=== PATIENT | female | born 2000 | race African-American/Black ===

== ENCOUNTER 2018-05-29 13:07 | Inpatient (IN) | payer MEDICAID ==
[2018-06-02 17:53] LABS: APPEARANCE,URINE CLOUDY; BILIRUBIN,URINE NEGATIVE (NEGATIVE); COLOR,URINE YELLOW; GLUCOSE, URINE NEGATIVE (NEGATIVE); KETONES,URINE NEGATIVE (NEGATIVE); LEUKOCYTE ESTERASE,URINE LARGE (NEGATIVE); NITRITE,URINE NEGATIVE (NEGATIVE); PROTEIN,URINE NEGATIVE (NEGATIVE); URINE SPECIFIC GRAVITY 1.014
[2018-06-02 17:56] LABS: ABSOLUTE BASOPHILS # (AUTO) 0.1 10^3/uL (0.0-0.2); ABSOLUTE EOSINOPHILS # (AUTO) 0.1 10^3/uL (0.0-0.6); ABSOLUTE LYMPHOCYTES (AUTO) 2.1 10^3/uL (0.5-4.7); ABSOLUTE MONOCYTES (AUTO) 0.8 10^3/uL (0.1-1.4); ABSOLUTE NEUT (AUTO) 6.5 10^3/uL (1.7-8.2); BASOPHILS % (AUTO) 0.5 % (0-2); EOSINOPHILS % (AUTO) 1.4 % (0-6); HEMATOCRIT 35.5 % (36.0-47.0); HEMOGLOBIN 11.5 g/dL (12.0-15.5); LYMPHOCYTES % (AUTO) 22.1 % (13-45); MEAN CORPUSCULAR HEMOGLOBIN 25.9 pg (27.0-33.4); MEAN CORPUSCULAR HGB CONC 32.4 g/dL (32.0-36.0); MEAN CORPUSCULAR VOLUME 80 fl (80-97); MONOCYTES % (AUTO) 8.2 % (3-13); PLATELET COUNT 294 10^3/uL (150-450); RED BLOOD COUNT 4.44 10^6/uL (3.72-5.28); RED CELL DISTRIBUTION WIDTH 13.6 % (11.5-14.0); SEGMENTED NEUTROPHILS % (AUTO) 67.8 % (42-78); TOTAL CELLS COUNTED % (AUTO) 100 %; WHITE BLOOD COUNT 9.6 10^3/uL (4.0-10.5)
[2018-06-02 18:11] LABS: URINE AMPHETAMINES SCREEN NEGATIVE; URINE BARBITURATES SCREEN NEGATIVE; URINE BENZODIAZEPINES SCREEN NEGATIVE; URINE COCAINE SCREEN NEGATIVE; URINE MARIJUANA (THC) SCREEN NEGATIVE; URINE METHADONE SCREEN NEGATIVE; URINE PHENCYCLIDINE SCREEN NEGATIVE
[2018-06-02] MEDS ORDERED: DINOPROSTONE 10 MG VAGINAL INSERT.SR ONE (18:31)
[2018-06-02] MEDS ORDERED: DINOPROSTONE 10 MG VAGINAL INSERT.SR PV ONE (18:55)
[2018-06-02] MEDS ORDERED: MAG HYDROX/AL HYDROX/SIMETH SUSP 30 ML UDCUP PO PRN (18:55)
[2018-06-02] MEDS ORDERED: ACETAMINOPHEN 325 MG TABLET PO PRN (18:55)
[2018-06-02] MEDS ORDERED: ZOLPIDEM TARTRATE 5 MG TABLET PO PRN (18:55)
[2018-06-02] MEDS ORDERED: SODIUM CHLORIDE IRRIG SOLUTION 1,000 ML IR PRN ×2 (19:01→19:04)
--- NOTE | 2018-06-02 19:01 | Admission Physical ---
Datetime Report Generated by CPN: 06/02/2018 19:00 CURRENT ADMISSION Chief Complaint: Scheduled Induction of Labor Indication for Induction: Post Dates; Maternal Diabetes Admit Impression : Term, Intrauterine ; No Active Labor; Intact Membranes Admit Plan: Admit to Unit; Initiate Labor Induction Protocol ALLERGIES Medication Allergies: No Medication Allergies: No Known Allergies (06/02/2018) Latex: No Latex Allergies Food Allergies: NA Environmental Allergies: NA OBSTETRICAL HISTORY EDC: 05/27/2018 00:00 : 1 Para: 0 Term: 0 : 0 SAB: 0 IAB: 0 Ectopic: 0 Livin Cesareans: 0 VBACs: 0 Multiple Births: 0 Gestational Diabetes: Yes Rh Sensitization: No Incompetent Cervix: No TORRIE: No Infertility: No ART Treatment: No Uterine Anomaly: No IUGR: No Hx Previous C/S: No Macrosomia: No Hx Loss/Stillborn: No PIH: No Hx : No Placenta Previa/Abruption: No Depression/PP Depression: No PTL/PROM: No Post Hemorrhage: No Current Procedures: Ultrasound; NST Obstetrical History Comments: G1-current preg SEE RECORDS Alcohol: No Marijuana : No Cocaine: No Other Illicit Drugs: No Cigarettes: Never Smoker. [id number] MEDICAL HISTORY Diabetes: Yes Diabetes Type: Gestational Diabetes Blood Transfusion: No Pulmonary Disease (Asthma, TB): No Breast Disease: No Hypertension: No Paper Products Supervisor Surgery: No Heart Disease: No Hosp/Surgery: No Autoimmune Disorder: No Anesthetic Complications: No Kidney Disease: No Abnormal Pap Smear: No Neuro/Epilepsy: No Psychiatric Disorders: No Other Medical Diseases: No Hepatitis/Liver Disease: No Significant Family History: No Varicosities/Phlebitis: No Trauma/Violence : No Thyroid Dysfunction: No INFECTIOUS HISTORY Gonorrhea: No Genital Herpes: No Chlamydia: No Tuberculosis: No Syphilis: No Hepatitis: No HIV/AIDS Exposure: No Rash or Viral Illness: No HPV: No PHYSICAL EXAM General: Normal HEENT: Normal Neurologic: Normal Thyroid: Normal Heart: Normal Lungs: Normal Breast: Normal Back: Normal Abdomen: Normal Genitourinary Exam: Normal Extremities: Normal DTRs: Normal Pelvic Type: Adequate Vital Signs: Reviewed; Within Normal Limits VAGINAL EXAM Dilatation: 1 Effacement: 75 Station: -3 Contraction Comments: irregular MEMBRANES Membranes: Intact FETUS A EGA: 40.6 Monitoring: External US FHR- Baseline: 140s Accelerations: 15X15 Decelerations: None FHR Category: Category I Admit Comment: Cervidil placed at 1844 PLANS FOR LABOR AND DELIVERY Labor and Delivery: None Pain Management: None Feeding Preference: Breast Benefit of Breast Feed Discussed: Yes Circumcision: Yes INFORMED CONSENT Signature: with User ID: [email or web address]
--- NOTE | 2018-06-03 06:56 | L&D Progress Notes ---
PROGRESS NOTES Datetime Report Generated by CPN: 06/03/2018 06:55 PROGRESS NOTE Impression: Normal Progression of Labor Plan: Continue Present Management Informed Consent Obtained: Vaginal Delivery Vital Signs : Reviewed; Within Normal Limits Comment: Pt rested overnight. Cervidil removed at 0644. Good cervical change. VAGINAL EXAM Dilatation: 1 Effacement: 75 Station: -3 Contractions: irregular LAST VAGINAL EXAM-NURSING Dilitation: 3.0 Dilitation: 3.0 Dilitation: 1.0 Effacement: 75 Effacement: 75 Effacement: 70 Station: -3 Station: -1 Station: -2 MEMBRANES Membranes: Intact FETUS A FHR - Baseline: 140s Monitoring: External US Variability: Moderate 6-25bpm Accelerations: 15X15 Decelerations: None FHR Category: Category I : 41.0 : 40.6 SIGNATURE SIGNATURE: [id number];[id number] SIGNATURE: [id number] Signature: with User ID: [email or web address]
[2018-06-03] MEDS ORDERED: RINGERS SOLUTION,LACTATED 1,000 ML IV PRN (08:02)
[2018-06-03] MEDS ORDERED: RINGERS SOLUTION,LACTATED 300 ML IV ONE (08:02)
[2018-06-03] MEDS ORDERED: DINOPROSTONE 10 MG VAGINAL INSERT.SR PV PRN (08:02)
[2018-06-03] MEDS ORDERED: OXYTOCIN/NORMAL SALINE 20 UNIT/1,000 ML RTUINJ IV PRN ×3 (08:02→15:18)
[2018-06-03] MEDS ORDERED: OXYTOCIN/NORMAL SALINE 20 UNIT/1,000 ML RTUINJ ONE (08:09)
[2018-06-03] MEDS ORDERED: ONDANSETRON HCL INJ/PF 4 MG/2 ML SDV IV PRN (08:22)
[2018-06-03] MEDS ORDERED: ONDANSETRON HCL INJ/PF 4 MG/2 ML SDV ONE (08:23)
[2018-06-03] MEDS ORDERED: LIDOCAINE 1% INJ-PF (10 MG/ML) 30 ML SDV ONE (08:31)
[2018-06-03] MEDS ORDERED: NALBUPHINE HCL INJ 10 MG/1 ML AMPULE ONE (08:31)
[2018-06-03] MEDS ORDERED: MISOPROSTOL 0.2 MG TABLET ONE (08:31)
[2018-06-03] MEDS ORDERED: NALBUPHINE HCL INJ 10 MG/1 ML AMPULE INJ ONE (08:35)
--- NOTE | 2018-06-03 08:40 | L&D Progress Notes ---
PROGRESS NOTES Datetime Report Generated by CPN: 06/03/2018 08:39 PROGRESS NOTE Impression: Normal Progression of Labor; Reassuring Heart Rate Procedures: Sterile Vag Exam Plan: Continue Present Management; Anticipate Vaginal Delivery Plan Other: Pt may have IV pain medicatin. Will d/c Pitocin Augmentation Vital Signs : Reviewed Comment: IOL since last night. S/p Vaginal Cervidil. Pt becoming uncomfortable with the contractions. PLans IV pain medication, does not plan an epiudural. Position changes encouraged. Anticipate VAGINAL EXAM Dilatation: 6 Effacement: 100 Station: 0 Contractions: q 1-2 Dilitation: 6.0 Effacement: 100 Station: 0 MEMBRANES Membranes: Intact FETUS A FHR - Baseline: 140 Monitoring: External US Variability: Moderate 6-25bpm Accelerations: 15X15 Decelerations: None FETUS C SIGNATURE: [id number];[id number] Assignment: Davon Damico MD Signature: with User ID: [email or web address] : with User ID: [email or web address]
[2018-06-03] MEDS ORDERED: BENZOCAINE/MENTHOL AEROSOL SPRAY 56 ML TOP PRN ×2 (12:33→15:18)
[2018-06-03] MEDS ORDERED: MEASLES,MUMPS&RUBELLA VACC/PF 0.5 ML VIAL SUBCUT PRN ×2 (12:33→15:18)
[2018-06-03] MEDS ORDERED: DIPH/PERTUSS(ACELL)/TETANUS VAC/PF 0.5 ML SYR (>=10YO) IM PRN ×2 (12:33→15:18)
[2018-06-03] MEDS ORDERED: ACETAMINOPHEN WITH CODEINE #3 TABLET PO PRN ×2 (12:33)
[2018-06-03] MEDS ORDERED: DIBUCAINE 1% OINTMENT 28 GM TP PRN ×2 (12:33→15:18)
[2018-06-03] MEDS ORDERED: IBUPROFEN 800 MG TABLET PO SCH (14:00)
--- NOTE | 2018-06-03 14:46 | Warning Signs in Babies ---
VOD Warning Signs Datetime Report Generated by [facility]: 06/03/2018 14:45 VOD#608 -Warning Signs in Babies: Viewed with Parent(s)/Family (06/02/2018 15:40:Rayray Lockhart RN)
--- NOTE | 2018-06-03 14:50 | Warning Signs in Babies ---
VOD Warning Signs Datetime Report Generated by [facility]: 06/03/2018 14:50 VOD#608 -Warning Signs in Babies: Viewed with Parent(s)/Family (06/03/2018 14:46:Rayray Lockhart RN)
[2018-06-03] MEDS ORDERED: ZOLPIDEM TARTRATE 5 MG TABLET PO PRN (15:18)
--- NOTE | 2018-06-03 17:04 | Delivery Summary ---
Del Sum A-C Datetime Report Generated by CPN: 06/03/2018 17:04 DELIVERY PERSONNEL DELIVERY PERSONNEL: [id number] Delivery Doctor:: Whit Junior CNM Labor and Delivery Nurse:: Rayray Lockhart RNcoal cutter Nurse:: Devorah Hogue RN Nursery Nurse:: Estela Tucker RN Student Observers:: ALIZA WELCH Tech/SUPERVISOR ELECTRIC: Cecilia Kellogg, EQUAL EMPLOYMENT OPPORTUNITY OFFICER MATERNAL INFORMATION Delivery Anesthesia: None Medications After Delivery: Pitocin Bolus-Please Comment; Pitocin Drip 20 Units/1000ml NSS Maternal Complications: None Provider Comments: Pt pushed x 30 min to achieve of viable male . Delivered RAVINDER, nuchal cord x 1, easily reduced. baby placed on pts abdoman in stable condition. Cord blood obtained. Placenta S/C/I. Iv Pitocin infusing. ff w/ decreased lochia. Repair of 2nd degree laceration repaired w/ 3.0 vicryl. Numbed with 1% lidocaine. Pt tolerated procedure well. Small abrasion on the cervix oozing. Hemostasis achieved by holding pressure on the cervix. Pt and baby are skin to skin, she plans to breastfeed. Attending MD is Dr Damico LABOR SUMMARY EDC: 05/27/2018 00:00 No. Babies in Womb: 1 Attempted: No Labor Anesthesia: None LABOR INFORMATION Reason for Induction: Maternal Diabetes Onset of Labor: 06/03/2018 08:28 Complete Dilatation: 06/03/2018 11:21 Cervical Ripening Agents: Cytotec @ 200mcg SL Oxytocin: N/A Group B Beta Strep: negative Antibiotics # of Doses: 0 Steroids Given: None Reason Steroids Not Administered: Not Applicable MEMBRANES Membranes Rupture Method: Artificial Rupture of Membranes: 06/03/2018 08:28 Length of Rupture (hr): 3.55 Amniotic Fluid Color: Light Meconium Amniotic Fluid Amount: Moderate Amniotic Fluid Odor: Normal STAGES OF LABOR Stage 1 hr: 2 Stage 1 min: 53 Stage 2 hr: 0 Stage 2 min: 40 Stage 3 hr: 0 Stage 3 min: 4 Total Time in Labor hr: 3 Total Time in Labor min: 37 VAGINAL DELIVERY Episiotomy: None Laceration #1: Perineal; Periurethral Laceration Extension #1: Second Degree Laceration Repair: Yes Sponge Count Correct: N/A Sharps Count Correct: N/A BABY A INFORMATION Infant Delivery Date/Time: 06/03/2018 12:01 Method of Delivery: Vaginal Born in Route : No : N/A Forceps: N/A Vacuum Extraction: N/A Shoulder Dystocia : No PRESENTATION/POSITION BABY A Presentation: Cephalic Cephalic Presentation: Vertex Vertex Position: Left Mentum Anterior Breech Presentation: N/A PLACENTA INFORMATION BABY A Placenta Delivery Time : 06/03/2018 12:05 Placenta Method of Delivery: Spontaneous Placenta Status: Delivered SCORES BABY A Heart Rate 1 min: >100 bpm Resp Effort 1 min: Good Cry Reflex Irritability 1 min: Cough or Sneeze or Pulls Away Muscle Tone 1 min: Active Motion Color 1 min: Blue/Pale Resuscitation Effort 1 min: Tactile Stimulation SCORE 1 MIN: 8 Heart Rate 5 min: >100 bpm Resp Effort 5 min: Good Cry Reflex Irritability 5 min: Cough or Sneeze or Pulls Away Muscle Tone 5 min: Active Motion Color 5 min: Blue/Pale Resuscitation Effort 5 min: Tactile Stimulation SCORE 5 MIN: 8 INFORMATION BABY A Gestational Age at Delivery: 41.0 Gestational Status: Late Term- 41- 41.6 Weeks Infant Outcome : Liveborn Condition : Stable Sex: Male IDENTIFICATION BABY A Verification Date/Time: 06/03/2018 13:03 ID Band Number: [id number] Mother's Name Verified: Yes Infant RN Verifying : Ashley Lockhart, RN and CLeland Cannon, RN WEIGHT/LENGTH BABY A Infant Birthweight (gm): 3687 Weight (lb): 8 Weight (oz): 2 Infant Length (in): 21.00 Infant Length (cm): 53.34 CORD INFORMATION BABY A No. Cord Vessels: 3 Nuchal Cord : Around Neck x1, Loose Cord Blood Taken: Yes-For Storage (Mom's Blood type +) Infant Suction: None ASSESSMENT BABY A Skin to Skin: Yes BABY B INFORMATION : N/A SIGNATURES Assignment: Davon Gambleb, MD Signature: with User ID: [email or web address] : with User ID: [email or web address]
[2018-06-03] MEDS: DOCUSATE SODIUM 100 MG CAPSULE PO SCH (17:45)
[2018-06-03] MEDS: FERROUS SULFATE 325 MG TABLET PO SCH (17:45)
[2018-06-03] MEDS ORDERED: FERROUS SULFATE 325 MG TABLET PO SCH (18:00)
[2018-06-03] MEDS ORDERED: DOCUSATE SODIUM 100 MG CAPSULE PO SCH (18:00)
[2018-06-04] MEDS: IBUPROFEN 800 MG TABLET PO SCH ×4 (00:03→21:49)
[2018-06-04 06:29] LABS: HEMATOCRIT 34.1 % (36.0-47.0); HEMOGLOBIN 10.9 g/dL (12.0-15.5); MEAN CORPUSCULAR HEMOGLOBIN 25.6 pg (27.0-33.4); MEAN CORPUSCULAR HGB CONC 31.9 g/dL (32.0-36.0); MEAN CORPUSCULAR VOLUME 80 fl (80-97); PLATELET COUNT 315 10^3/uL (150-450); RED BLOOD COUNT 4.24 10^6/uL (3.72-5.28); RED CELL DISTRIBUTION WIDTH 13.7 % (11.5-14.0); WHITE BLOOD COUNT 17.6 10^3/uL (4.0-10.5)
[2018-06-04] MEDS ORDERED: SENNOSIDES/DOCUSATE 8.6-50 MG 1 EACH TABLET PO SCH (10:00)
[2018-06-04] MEDS ORDERED: PRENATAL VITAMIN W DHA CAPSULE PO SCH (10:00)
[2018-06-04] MEDS: SENNOSIDES/DOCUSATE 8.6-50 MG 1 EACH TABLET PO SCH (10:12)
[2018-06-04] MEDS: FERROUS SULFATE 325 MG TABLET PO SCH ×2 (10:12→17:54)
[2018-06-04] MEDS: DOCUSATE SODIUM 100 MG CAPSULE PO SCH ×2 (10:12→17:54)
[2018-06-04] MEDS: PRENATAL VITAMIN W DHA CAPSULE PO SCH (10:12)
--- NOTE | 2018-06-04 10:47 | PDOC PROGRESS REPORT ---
Subjective-OB Progress Note for:: 06/04/18 Subjective: Pt doing well, no concerns. She reports light bleeding, reg diet and voiding without difficulty. Bonding with baby. Physical Exam (OB) Vital Signs: Temp Pulse Resp BP Pulse Ox 97.9 F 65 16 108/56 L 98 06/04/18 07:48 06/04/18 07:48 06/04/18 07:48 06/04/18 07:48 06/04/18 07:48 Intake & Output 06/03/18 06/04/18 06/05/18 06:59 06:59 06:59 Weight 69.5 kg - Lochia Lochia Amount: Scant < 10 ml Lochia Color: Rubra/Red - Abdomen Description: Soft Hernia Present: No Fundal Description: Firm, Midline Fundal Height: u/u - u/2 Objective-Diagnostic Laboratory: 06/04/18 06:07 06/04/18 06:07 WBC 17.6 H RBC 4.24 Hgb 10.9 L Hct 34.1 L MCV 80 MCH 25.6 L MCHC 31.9 L RDW 13.7 Plt Count 315 Assessment and Plan(PN) - Assessment and Plan (1) Vaginal delivery Is this a current diagnosis for this admission?: Yes (2) Diet controlled gestational diabetes mellitus (GDM) in third trimester Is this a current diagnosis for this admission?: Yes - Time Spent with Patient Time with patient: Less than 15 minutes Smoking Education Provided: Over 3 minutes Medications reviewed and adjusted accordingly: Yes - Disposition Anticipated Discharge: Home Within: within 24 hours
[2018-06-05] MEDS: IBUPROFEN 800 MG TABLET PO SCH (05:35)
[2018-06-05] MEDS: SENNOSIDES/DOCUSATE 8.6-50 MG 1 EACH TABLET PO SCH (10:24)
[2018-06-05] MEDS: PRENATAL VITAMIN W DHA CAPSULE PO SCH (10:24)
[2018-06-05] MEDS: DOCUSATE SODIUM 100 MG CAPSULE PO SCH (10:24)
[2018-06-05] MEDS: FERROUS SULFATE 325 MG TABLET PO SCH (10:24)
--- NOTE | 2018-06-05 11:06 | PDOC PROGRESS REPORT ---
Subjective-OB Progress Note for:: 06/05/18 Subjective: Doing well, no c/o, ready to go home Physical Exam (OB) Vital Signs: Temp Pulse Resp BP Pulse Ox 98.3 F 80 18 103/55 L 100 06/04/18 20:12 06/04/18 20:12 06/04/18 20:12 06/04/18 20:12 06/04/18 20:12 - PIH/Pre-Eclampsia DTR's: 1 + Clonus: Negative Headache: Absent Epigastric Pain: No Visual Changes: No - Lochia Lochia Amount: Scant < 10 ml Lochia Color: Rubra/Red - Abdomen Description: Soft, Round Hernia Present: No Fundal Description: Firm, Midline Fundal Height: u/u - u/2 Objective-Diagnostic Laboratory: 06/04/18 06:07 Assessment and Plan(PN) - Assessment and Plan (1) Vaginal delivery Is this a current diagnosis for this admission?: Yes (2) Diet controlled gestational diabetes mellitus (GDM) in third trimester Is this a current diagnosis for this admission?: Yes - Time Spent with Patient Time with patient: Less than 15 minutes Smoking Education Provided: Over 3 minutes Medications reviewed and adjusted accordingly: Yes - Disposition Anticipated Discharge: Home Within: within 24 hours
--- NOTE | 2018-06-05 11:11 | PDOC DISCHARGE SUMMARY ---
Final Diagnosis Discharge Date: 06/05/18 - Final Diagnosis (1) Vaginal delivery Is this a current diagnosis for this admission?: Yes (2) Diet controlled gestational diabetes mellitus (GDM) in third trimester Is this a current diagnosis for this admission?: Yes Discharge Data - Discharge Medication Home Medications: Vits96/Iron Fum/Folic [ Tablet] 1 tab PO DAILY 06/02/18 Gestational Age: 41 Reason(s) for Admission: Induction of Labor, Gestional Diabetes Procedures: NST, Ultrasound - Data Baby 1 Male Home with Mother: Yes Complications: No - Diagnosis Test Laboratory: Temp Pulse Resp BP Pulse Ox 98.3 F 80 18 103/55 L 100 06/04/18 20:12 06/04/18 20:12 06/04/18 20:12 06/04/18 20:12 06/04/18 20:12 06/02/18 06/02/18 06/04/18 17:00 17:36 06:07 RBC 4.44 4.24 Hgb 11.5 L 10.9 L Hct 35.5 L 34.1 L Urine Opiates Screen NEGATIVE - Discharge information/Instructions Discharge Activity: Activity As Tolerated, No Lifting Over 10 Pounds, No Lifting /Push/Pulling, Pelvic Rest Discharge Diet: As Tolerated, Regular Disposition: HOME, SELF-CARE Follow up with: [facility] in: 4, Weeks
[2018-06-05 11:12] VITALS: BP 114/54
== END 2018-06-05 13:07 | disposition home or self-care (01) | DRG 806 ==
LOC: LR 06-02 16:58 → 2S 06-03 15:16
PROVIDERS: ADMIT Obstetrics & Gynecology; ATTEND Obstetrics & Gynecology
PROC: 10E0XZZ Delivery of Products of Conception, External Approach (ICD-10-PCS; principal; 2018-06-03)
PROC: 0KQM0ZZ Repair Perineum Muscle, Open Approach (ICD-10-PCS; 2018-06-03)
PROC: 4A1HXCZ Monitoring of Products of Conception, Cardiac Rate, External Approach (ICD-10-PCS; 2018-06-03)
DX: O24.420 Gestational diabetes mellitus in childbirth, diet controlled (principal); O71.3 Obstetric laceration of cervix; Z37.0 Single live birth; O69.81X0 Labor and delivery complicated by cord around neck, without compression, not applicable or unspecified; O48.0 Post-term pregnancy; O77.0 Labor and delivery complicated by meconium in amniotic fluid; O70.1 Second degree perineal laceration during delivery; Z3A.41 41 weeks gestation of pregnancy
CPT/HCPCS: 36415; 80307; 81005; 85025; 85027; 86592; 86850; 86900; 86901; J2300; J2405; J2590; J3490

== ENCOUNTER 2019-08-24 22:53 | Inpatient (IN) | payer MEDICAID ==
[2019-08-24] MEDS ORDERED: RINGERS SOLUTION,LACTATED 1,000 ML IV ONE (23:01)
[2019-08-24] MEDS ORDERED: RINGERS SOLUTION,LACTATED 1,000 ML IV PRN (23:01)
[2019-08-24] MEDS ORDERED: PENICILLIN G POTASSIUM 5,000,000 UNIT in DEXTROSE 5%-WATER 100 ML IV ONE (23:30)
[2019-08-24 23:47] LABS: BACTERIA (WET MOUNT) 4+ BACTERIA SEEN; EPITHELIALS (WET MOUNT) 3+ EPITHELIALS SEEN; RBCS (WET MOUNT) RARE RBCS SEEN; T.VAGINALIS (WET MOUNT) NO TRICHOMONAS SEEN; URINE AMPHETAMINES SCREEN NEGATIVE; URINE BARBITURATES SCREEN NEGATIVE; URINE BENZODIAZEPINES SCREEN NEGATIVE; URINE COCAINE SCREEN NEGATIVE; URINE MARIJUANA (THC) SCREEN NEGATIVE; URINE METHADONE SCREEN NEGATIVE; URINE PHENCYCLIDINE SCREEN NEGATIVE; WBCS (WET MOUNT) 3+ WBCS SEEN; YEAST (WET MOUNT) NO YEAST SEEN
[2019-08-24 23:56] LABS: ABSOLUTE EOSINOPHILS # (AUTO) 0.1 10^3/uL (0.0-0.6); ABSOLUTE LYMPHOCYTES (AUTO) 1.7 10^3/uL (0.5-4.7); ABSOLUTE MONOCYTES (AUTO) 0.7 10^3/uL (0.1-1.4); ABSOLUTE NEUT (AUTO) 6.5 10^3/uL (1.7-8.2); BASOPHILS % (AUTO) 0.2 % (0-2); EOSINOPHILS % (AUTO) 1.5 % (0-6); HEMATOCRIT 34.4 % (36.0-47.0); LYMPHOCYTES % (AUTO) 18.9 % (13-45); MEAN CORPUSCULAR HEMOGLOBIN 25.5 pg (27.0-33.4); MEAN CORPUSCULAR VOLUME 80 fl (80-97); MONOCYTES % (AUTO) 8.1 % (3-13); PLATELET COUNT 313 10^3/uL (150-450); RED BLOOD COUNT 4.32 10^6/uL (3.72-5.28); RED CELL DISTRIBUTION WIDTH 14.6 % (11.5-14.0); SEGMENTED NEUTROPHILS % (AUTO) 71.3 % (42-78); TOTAL CELLS COUNTED % (AUTO) 100 %; WHITE BLOOD COUNT 9.1 10^3/uL (4.0-10.5)
--- NOTE | 2019-08-25 00:22 | RADIOLOGY REPORT (SQ) ---
EXAM: US , Limited EXAM DATE/TIME: 08/24/2019 11:26 PM CLINICAL HISTORY: The patient is 19 years old and is Female; no care, dating, pres TECHNIQUE: Real-time limited ultrasound of the maternal uterus with image documentation. COMPARISON: No relevant prior studies available. FINDINGS: LIMITATIONS: There is limited visualization of anatomy due to advanced gestational age. FETUS: Single intrauterine . GESTATIONAL AGE: Estimated gestational age is 39 weeks 3 days. ELVIS: ELVIS by this ultrasound is 08/28/2019 EFW: Estimated weight is 3842 g (8 lbs. 8 oz.). POSITION: presentation is vertex. HEART RATE: heart rate is 147 bpm. PLACENTA: The placenta is fundal. No placenta previa. AMNIOTIC FLUID: SHANELLE is 10.3 cm. CERVIX: The cervix measures 2.0 cm in length and appears partially open. IMPRESSION: Single live intrauterine with estimated gestational age of 39 weeks 3 days.
[2019-08-25] MEDS ORDERED: NA PHOS,M-B/NA PHOS,DI-BA (ADULT) 133 ML ENEMA PR PRN (00:52)
[2019-08-25] MEDS ORDERED: OXYTOCIN/NORMAL SALINE 20 UNIT/1,000 ML RTUINJ IV PRN (00:52)
[2019-08-25] MEDS ORDERED: MAGNESIUM HYDROXIDE SUSP 30 ML UDCUP PO PRN (00:52)
[2019-08-25] MEDS ORDERED: DIBUCAINE 1% OINTMENT 28 GM TP PRN (00:52)
[2019-08-25] MEDS ORDERED: BENZOCAINE/MENTHOL AEROSOL SPRAY 56 ML TOP PRN (00:52)
[2019-08-25] MEDS ORDERED: DIPHENHYDRAMINE HCL 25 MG CAPSULE PO PRN (00:52)
[2019-08-25] MEDS ORDERED: ZOLPIDEM TARTRATE 5 MG TABLET PO PRN (00:52)
[2019-08-25] MEDS ORDERED: ACETAMINOPHEN WITH CODEINE #3 TABLET PO PRN ×2 (00:52)
[2019-08-25] MEDS ORDERED: PROMETHAZINE HCL 25 MG SUPP.RECT PR PRN (00:52)
[2019-08-25] MEDS ORDERED: PROMETHAZINE HCL INJ 25 MG/1 ML VIAL IV PRN (00:52)
[2019-08-25] MEDS ORDERED: MISOPROSTOL 0.2 MG TABLET PR PRN (00:52)
[2019-08-25] MEDS ORDERED: DIPH/PERTUSS(ACELL)/TETANUS VAC/PF 0.5 ML SYR (>=10YO) IM PRN (00:52)
[2019-08-25] MEDS ORDERED: PSEUDOEPHEDRINE HCL 30 MG TABLET PO PRN (00:52)
[2019-08-25] MEDS ORDERED: ACETAMINOPHEN 650 MG SUPP.RECT PR PRN (00:52)
[2019-08-25] MEDS ORDERED: PROMETHAZINE HCL 25 MG TABLET PO PRN (00:52)
[2019-08-25] MEDS ORDERED: MEASLES,MUMPS&RUBELLA VACC/PF 0.5 ML VIAL SUBCUT PRN (00:52)
[2019-08-25] MEDS ORDERED: GLYCERIN/WITCH HAZEL LEAF 1 EACH MED..WIPE TP PRN (00:52)
[2019-08-25 00:55] LABS: APPEARANCE,URINE SLIGHTLY-CLOUDY; BILIRUBIN,URINE NEGATIVE (NEGATIVE); COLOR,URINE YELLOW; GLUCOSE, URINE NEGATIVE (NEGATIVE); KETONES,URINE NEGATIVE (NEGATIVE); LEUKOCYTE ESTERASE,URINE SMALL (NEGATIVE); NITRITE,URINE NEGATIVE (NEGATIVE); PROTEIN,URINE NEGATIVE (NEGATIVE); URINE SPECIFIC GRAVITY 1.015; UROBILINOGEN,URINE NEGATIVE mg/dL (<2.0)
[2019-08-25 01:06] LABS: CHLAM PCR NOT DETECTED (NOT DETECT)
--- NOTE | 2019-08-25 01:09 | Admission Physical ---
Datetime Report Generated by CPN: 08/25/2019 01:08 CURRENT ADMISSION Chief Complaint: Uterine Contractions Indication for Induction: Not Applicable Admit Impression : Term, Intrauterine ; Active Labor Admit Plan: Admit to Unit; Initiate Labor Protocol ALLERGIES Medication Allergies: No Medication Allergies: No Known Allergies (06/02/2018) Latex: No Latex Allergies OBSTETRICAL HISTORY EDC: 08/28/2019 00:00 : 2 Para: 1 Term: 1 : 0 SAB: 0 IAB: 0 Ectopic: 0 Livin Cesareans: 0 VBACs: 0 Multiple Births: 0 Gestational Diabetes: No Rh Sensitization: No Incompetent Cervix: No TORRIE: No Infertility: No ART Treatment: No Uterine Anomaly: No IUGR: No Hx Previous C/S: No Macrosomia: No Hx Loss/Stillborn: No PIH: No Hx : No Placenta Previa/Abruption: No Depression/PP Depression: No PTL/PROM: No Post Hemorrhage: No Obstetrical History Comments: G1- term - GDM G2- current NPC SEE RECORDS Alcohol: No Marijuana : No Cocaine: No Other Illicit Drugs: No Cigarettes: Never Smoker. [id number] MEDICAL HISTORY Diabetes: No Blood Transfusion: No Pulmonary Disease (Asthma, TB): No Breast Disease: No Hypertension: No Painter Hand Surgery: No Heart Disease: No Hosp/Surgery: No Autoimmune Disorder: No Anesthetic Complications: No Kidney Disease: No Abnormal Pap Smear: No Neuro/Epilepsy: No Psychiatric Disorders: No Other Medical Diseases: No Hepatitis/Liver Disease: No Significant Family History: No Varicosities/Phlebitis: No Trauma/Violence : No Thyroid Dysfunction: No INFECTIOUS HISTORY Gonorrhea: No Genital Herpes: No Chlamydia: No Tuberculosis: No Syphilis: No Hepatitis: No HIV/AIDS Exposure: No Rash or Viral Illness: No HPV: No PHYSICAL EXAM General: Normal HEENT: Normal Neurologic: Normal Thyroid: Deferred Heart: Normal Lungs: Normal Breast: Deferred Back: Normal Abdomen: Normal Genitourinary Exam: Normal Extremities: Normal DTRs: Normal Pelvic Type: Adequate Vital Signs: Reviewed VAGINAL EXAM Dilatation: 8 Effacement: 100 Station: -2 Contraction Comments: irreg FETUS A EGA: 39.3 Monitoring: External US FHR- Baseline: 125 Variability: Moderate 6-25bpm Accelerations: 15X15 Decelerations: None FHR Category: Category I Presentation: Vertex Admit Comment: 19yo at unknown ega presents from the ER. No care. ER triage provider called stating the patient was and could feel movement but no other assessment at the time. Provider called and I answered phone and asked could the patient be assessed since I wanted to make sure patient was not going to deliver on route and perhaps could have US en route to us if she was stable enough to do so. I advised the provider that I would send someone down immediately for assessment. EJ RN evaluated patient with 8cm but stable patient who did not need to push and accompanied patient to the floor. patient arrived and assessed - appears to be large amount of fluid - actimprom done and pending but patient 8cm. No care labs ordered and GBS/wet prep/GC/CT done. Patient possible - Celestone given. US was eventually able to come up for evaluation and patient assessed to be 39+ega. Pt reports unsure of LMP due to baby born 05/2018. PCN ordered due to unknown ega and unknown gbs. Anticipate . PLANS FOR LABOR AND DELIVERY Labor and Delivery: None Pain Management: None Feeding Preference: Breast Benefit of Breast Feed Discussed: Yes INFORMED CONSENT Informed Consent Obtained: Vaginal Delivery; Risks, Benefits and Alternatives Discussed Signature: with User ID: [email or web address]
[2019-08-25] MEDS ORDERED: BETAMET ACET/BETAMET NA INJ 6 MG/1 ML IM ONE (01:30)
--- NOTE | 2019-08-25 02:21 | Delivery Summary ---
Del Sum A-C Datetime Report Generated by CPN: 08/25/2019 02:21 DELIVERY PERSONNEL DELIVERY PERSONNEL: [id number] Delivery Doctor:: Michelle Miles MD Labor and Delivery Nurse:: Deborah Murry RN Apparel Machinery Instructor:: Sumaya Yebaoh RN Nursery Nurse:: Aisha Romero RN MSN Nursery Nurse:: Pita Patel RN Air Cargo Specialist/OPERATIONS PROJECT MANAGER: Lexii Luong, ST MATERNAL INFORMATION Delivery Anesthesia: None Medications After Delivery: Pitocin Drip 20 Units/1000ml NSS; Cytotec 1000mcg Per Rectum/Vagina Estimated Blood Loss (ml): 150 Delivery QBL: 150 Maternal Complications: Precipitous Labor (<3hrs) Provider Comments: VMI delivered in DREW presentation. Nuchal and body cord. SHoulders and body delivered without difficulty. Cord doubly clamped and cut and infant to maternal abdomen for NRP. Placenta delivered intact spontaneously. FF at U. 1st degree perineal laceration repaired with good hemostasis. Mother and baby stable upon provider leaving the room. LABOR SUMMARY EDC: 08/28/2019 00:00 No. Babies in Womb: 1 Attempted: No Labor Anesthesia: None LABOR INFORMATION Reason for Induction: Not Applicable Onset of Labor: 08/24/2019 21:00 Complete Dilatation: 08/24/2019 23:42 Oxytocin: N/A Group B Beta Strep: Unkown Antibiotics # of Doses: 1 Name of Antibiotic Given: PCN Steroids Given: Partial Course Reason Steroids Not Administered: Imminent Delivery; Other Other Reason Not Administered: ega determined 39wks, delivered less than 3 hours MEMBRANES Membranes Rupture Method: Artificial Rupture of Membranes: 08/25/2019 00:01 Length of Rupture (hr): 0.65 Amniotic Fluid Color: Clear Amniotic Fluid Amount: Moderate Amniotic Fluid Odor: Normal STAGES OF LABOR Stage 1 hr: 2 Stage 1 min: 42 Stage 2 hr: 0 Stage 2 min: 58 Stage 3 hr: 0 Stage 3 min: 3 Total Time in Labor hr: 3 Total Time in Labor min: 43 VAGINAL DELIVERY Episiotomy: None Laceration #1: Perineal Laceration Extension #1: First Degree Laceration Repair: Yes Laceration Repair Note: 1st degree perineal laceration repaired for hemostasis Sponge Count Correct: Yes Sharps Count Correct: Yes CSECTION DELIVERY Primary Indication: N/A Secondary Indication: N/A CSection Incidence: N/A Labor: N/A Elective: N/A CSection Incision: N/A BABY A INFORMATION Delivery Date/Time: 08/25/2019 00:40 Method of Delivery: Vaginal Nurse Controlled Delivery: No Born in Route : No : N/A Forceps: N/A Vacuum Extraction: N/A Shoulder Dystocia : No PRESENTATION/POSITION BABY A Presentation: Cephalic (Annotations: Data stored by [facility] on behalf of user) Cephalic Presentation: Vertex Vertex Position: Left Occipital Anterior Breech Presentation: N/A PLACENTA INFORMATION BABY A Placenta Delivery Time : 08/25/2019 00:43 Placenta Method of Delivery: Spontaneous Placenta Status: Delivered SCORES BABY A Heart Rate 1 min: >100 bpm Resp Effort 1 min: Good Cry Reflex Irritability 1 min: Cough or Sneeze or Pulls Away Muscle Tone 1 min: Active Motion Color 1 min: Blue/Pale Resuscitation Effort 1 min: Tactile Stimulation SCORE 1 MIN: 8 Heart Rate 5 min: >100 bpm Resp Effort 5 min: Good Cry Reflex Irritability 5 min: Cough or Sneeze or Pulls Away Muscle Tone 5 min: Active Motion Color 5 min: Body [place], Extremities Blue SCORE 5 MIN: 9 INFANT INFORMATION BABY A Gestational Age at Delivery: 39.4 Gestational Status: Full Term- 39- 40.6 Weeks Infant Outcome : Liveborn Condition : Stable Sex: Male IDENTIFICATION BABY A Verification Date/Time: 08/25/2019 00:49 ID Band Number: [id number] Mother's Name Verified: Yes Infant RN Verifying : , RN and Juan Carlos RN WEIGHT/LENGTH BABY A Infant Birthweight (gm): 3374 Infant Weight (lb): 7 Weight (oz): 7 Infant Length (in): 20.25 Length (cm): 51.44 CORD INFORMATION BABY A No. Cord Vessels: 3 Nuchal Cord : N/A Nuchal Cord- Other: Body Nuchal Cord Blood Taken: Yes-For Eval (Mom's Blood Type - or O+) ASSESSMENT BABY A Skin to Skin: Yes BABY B INFORMATION : N/A SIGNATURES Signature: with User ID: [email or web address]
[2019-08-25] MEDS ORDERED: PENICILLIN G POTASSIUM 2,500,000 UNIT in DEXTROSE 5%-WATER 50 ML IV SCH (03:30)
[2019-08-25] MEDS: IBUPROFEN 800 MG TABLET PO SCH ×3 (05:41→22:57)
[2019-08-25] MEDS ORDERED: BETAMET ACET/BETAMET NA INJ 6 MG/1 ML ONE (06:10)
[2019-08-25] MEDS ORDERED: OXYTOCIN 10 UNIT/ML VIAL ONE (06:10)
[2019-08-25] MEDS: DOCUSATE SODIUM 100 MG CAPSULE PO SCH ×2 (09:37→17:37)
[2019-08-25] MEDS: SENNOSIDES/DOCUSATE 8.6-50 MG 1 EACH TABLET PO SCH (09:37)
[2019-08-25] MEDS: FAMOTIDINE 20 MG TABLET PO SCH ×2 (09:37→22:57)
[2019-08-25] MEDS: FERROUS SULFATE 325 MG TABLET PO SCH ×2 (09:37→17:37)
[2019-08-25] MEDS: PRENATAL VITAMIN W DHA CAPSULE PO SCH (09:37)
--- NOTE | 2019-08-25 16:35 | PDOC PROGRESS REPORT ---
Subjective-OB Progress Note for:: 08/25/19 Subjective: 19yo G2 now P2 s/p day 1. Pt ambulating and voiding without difficulty. Pain well controlled with medications. No concerns today Physical Exam (OB) Vital Signs: Temp Pulse Resp BP Pulse Ox 98.7 F 67 16 119/76 99 08/25/19 07:51 08/25/19 07:51 08/25/19 07:51 08/25/19 07:51 08/25/19 07:51 - General General Appearance: Appears well In distress: None - PIH/Pre-Eclampsia Clonus: Negative Headache: Absent Epigastric Pain: No Visual Changes: No - Episiotomy/Laceration Site Condition: Well Approximated - Lochia Lochia Amount: Scant < 10 ml Lochia Color: Rubra/Red - Abdomen Description: Soft Hernia Present: No Fundal Description: Firm, Midline Fundal Height: u/u - u/2 - Respiratory Respiratory Status: No respiratory distress - Extremities Upper extremity: Normal inspection Lower extremities: Normal inspection - Neurological Cognition: Normal Orientation: AAOx4 - Psychological Associated symptoms: Normal affect, Normal mood Objective-Diagnostic Laboratory: 08/24/19 23:15 08/24/19 08/24/19 08/24/19 22:30 23:15 23:15 WBC 9.1 RBC 4.32 Hgb 11.0 L Hct 34.4 L MCV 80 MCH 25.5 L MCHC 32.0 RDW 14.6 H Plt Count 313 Seg Neutrophils % 71.3 Urine Color YELLOW Urine Appearance SLIGHTLY-CLOUDY Urine pH 7.0 Ur Specific [place] 1.015 Urine Protein NEGATIVE Urine Glucose (UA) NEGATIVE Urine Ketones NEGATIVE Urine Blood NEGATIVE Urine Nitrite NEGATIVE Ur Leukocyte Esterase SMALL H Urine WBC (Auto) 2 Blood Type O POSITIVE Antibody Screen NEGATIVE Assessment and Plan(PN) - Assessment and Plan (1) No care in current Qualifiers: Trimester: third trimester Qualified Code(s): O09.33 - Supervision of with insufficient care, third trimester Is this a current diagnosis for this admission?: Yes Plan: discharge planning placed, delivered (2) Obstetrical laceration, first degree Is this a current diagnosis for this admission?: Yes Plan: continue to monitor for s/s of infection (3) Precipitous delivery, delivered (current hospitalization) Is this a current diagnosis for this admission?: Yes Plan: delivered (4) Vaginal delivery Is this a current diagnosis for this admission?: Yes Plan: rroutine pp care - Time Spent with Patient Time with patient: Less than 15 minutes Medications reviewed and adjusted accordingly: Yes - Disposition Anticipated Discharge: Home Within: within 24 hours
[2019-08-26 05:37] LABS: HEPATITIS C VIRUS AB <0.1 s/co ratio (0.0-0.9)
[2019-08-26] MEDS: IBUPROFEN 800 MG TABLET PO SCH ×3 (06:33→21:51)
[2019-08-26 06:54] LABS: HEMATOCRIT 31.2 % (36.0-47.0); HEMOGLOBIN 9.8 g/dL (12.0-15.5); MEAN CORPUSCULAR HEMOGLOBIN 24.9 pg (27.0-33.4); MEAN CORPUSCULAR HGB CONC 31.4 g/dL (32.0-36.0); MEAN CORPUSCULAR VOLUME 79 fl (80-97); PLATELET COUNT 285 10^3/uL (150-450); RED BLOOD COUNT 3.93 10^6/uL (3.72-5.28); RED CELL DISTRIBUTION WIDTH 14.9 % (11.5-14.0); WHITE BLOOD COUNT 16.2 10^3/uL (4.0-10.5)
[2019-08-26 08:38] LABS: HEPATITS B SURFACE ANTIGEN Negative (Negative)
[2019-08-26] MEDS: DOCUSATE SODIUM 100 MG CAPSULE PO SCH ×2 (09:43→18:06)
[2019-08-26] MEDS: PRENATAL VITAMIN W DHA CAPSULE PO SCH (09:43)
[2019-08-26] MEDS: FERROUS SULFATE 325 MG TABLET PO SCH ×2 (09:43→18:06)
[2019-08-26] MEDS: FAMOTIDINE 20 MG TABLET PO SCH ×2 (09:43→21:51)
[2019-08-26] MEDS: SENNOSIDES/DOCUSATE 8.6-50 MG 1 EACH TABLET PO SCH (09:43)
--- NOTE | 2019-08-26 10:32 | PDOC PROGRESS REPORT ---
Subjective-OB Progress Note for:: 08/26/19 Subjective: Pt doing well, no concerns. Reports light bleeding, reg diet and voiding without difficulty. Physical Exam (OB) Vital Signs: Temp Pulse Resp BP Pulse Ox 98.3 F 57 L 22 H 123/62 100 08/26/19 08:00 08/26/19 08:00 08/26/19 08:00 08/26/19 08:00 08/26/19 08:00 Intake & Output 08/25/19 08/26/19 08/27/19 06:59 06:59 06:59 Intake Total 500 Balance 500 - Lochia Lochia Amount: Small 10-25 ml Lochia Color: Rubra/Red - Abdomen Description: Soft, Round Hernia Present: No Fundal Description: Firm, Midline Fundal Height: u/u - u/2 Objective-Diagnostic Laboratory: 08/26/19 06:15 08/26/19 06:15 WBC 16.2 H RBC 3.93 Hgb 9.8 L Hct 31.2 L MCV 79 L MCH 24.9 L MCHC 31.4 L RDW 14.9 H Plt Count 285 Assessment and Plan(PN) - Assessment and Plan (1) Abdominal pain during in third trimester Is this a current diagnosis for this admission?: Yes (2) No care in current Qualifiers: Trimester: third trimester Qualified Code(s): O09.33 - Supervision of with insufficient care, third trimester Is this a current diagnosis for this admission?: Yes (3) Obstetrical laceration, first degree Is this a current diagnosis for this admission?: Yes (4) Precipitous delivery, delivered (current hospitalization) Is this a current diagnosis for this admission?: Yes (5) Vaginal delivery Is this a current diagnosis for this admission?: Yes - Time Spent with Patient Time with patient: Less than 15 minutes Medications reviewed and adjusted accordingly: Yes - Disposition Anticipated Discharge: Home Within: within 24 hours
[2019-08-27] MEDS: IBUPROFEN 800 MG TABLET PO SCH ×2 (05:13→15:16)
[2019-08-27 08:54] VITALS: BP 123/62
[2019-08-27] MEDS: FAMOTIDINE 20 MG TABLET PO SCH (09:31)
[2019-08-27] MEDS: FERROUS SULFATE 325 MG TABLET PO SCH (09:31)
[2019-08-27] MEDS: PRENATAL VITAMIN W DHA CAPSULE PO SCH (09:31)
[2019-08-27] MEDS: SENNOSIDES/DOCUSATE 8.6-50 MG 1 EACH TABLET PO SCH (09:32)
[2019-08-27] MEDS: DOCUSATE SODIUM 100 MG CAPSULE PO SCH (09:32)
--- NOTE | 2019-08-27 12:41 | PDOC DISCHARGE SUMMARY ---
Impression - Admit/DC Date/PCP Admission Date/Primary Care Provider: 08/24/19 22:55 CARMELLA ELLIOTT MD Discharge Date: 08/27/19 - Discharge Diagnosis (1) No care in current Is this a current diagnosis for this admission?: Yes (2) Obstetrical laceration, first degree Is this a current diagnosis for this admission?: Yes (3) Precipitous delivery, delivered (current hospitalization) Is this a current diagnosis for this admission?: Yes (4) Vaginal delivery Is this a current diagnosis for this admission?: Yes - Additional Information Discharge Diet: Regular Discharge Activity: Balance Activity w/Rest Referrals: CARMELLA ELLIOTT MD [Primary Care Provider] - Prescriptions: Ibuprofen [Motrin 800 mg Tablet] 800 mg PO Q8HP PRN #60 tablet PRN Reason: Home Medications: Vits96/Iron Fum/Folic [ Tablet] 1 tab PO DAILY 06/02/18 Ibuprofen [Motrin 800 mg Tablet] 800 mg PO Q8HP PRN #60 tablet 08/27/19 HPI Gestational Age: 39+3 Reason(s) for Admission: Onset of Labor Procedures: NST Intrapartum Procedure(s): Spontaneous Vaginal Delivery Complication(s): Laceration-Perineal Laceration-Degree: 1st Results Laboratory Results: WBC 16.2 10^3/uL (4.0-10.5) H 08/26/19 06:15 RBC 3.93 10^6/uL (3.72-5.28) 08/26/19 06:15 Hgb 9.8 g/dL (12.0-15.5) L 08/26/19 06:15 Hct 31.2 % (36.0-47.0) L 08/26/19 06:15 MCV 79 fl (80-97) L 08/26/19 06:15 MCH 24.9 pg (27.0-33.4) L 08/26/19 06:15 MCHC 31.4 g/dL (32.0-36.0) L 08/26/19 06:15 RDW 14.9 % (11.5-14.0) H 08/26/19 06:15 Plt Count 285 10^3/uL (150-450) 08/26/19 06:15 Lymph % (Auto) 18.9 % (13-45) 08/24/19 23:15 Ray % (Auto) 8.1 % (3-13) 08/24/19 23:15 Eos % (Auto) 1.5 % (0-6) 08/24/19 23:15 Baso % (Auto) 0.2 % (0-2) 08/24/19 23:15 Absolute Neuts (auto) 6.5 10^3/uL (1.7-8.2) 08/24/19 23:15 Absolute Lymphs (auto) 1.7 10^3/uL (0.5-4.7) 08/24/19 23:15 Absolute Monos (auto) 0.7 10^3/uL (0.1-1.4) 08/24/19 23:15 Absolute Eos (auto) 0.1 10^3/uL (0.0-0.6) 08/24/19 23:15 Absolute Basos (auto) 0.0 10^3/uL (0.0-0.2) 08/24/19 23:15 Seg Neutrophils % 71.3 % (42-78) 08/24/19 23:15 Urine Color YELLOW 08/24/19 22:30 Urine Appearance SLIGHTLY-CLOUDY 08/24/19 22:30 Urine pH 7.0 (5.0-9.0) 08/24/19 22:30 Ur Specific [place] 1.015 08/24/19 22:30 Urine Protein NEGATIVE mg/dL (NEGATIVE) 08/24/19 22:30 Urine Glucose (UA) NEGATIVE mg/dL (NEGATIVE) 08/24/19 22:30 Urine Ketones NEGATIVE mg/dL (NEGATIVE) 08/24/19 22:30 Urine Blood NEGATIVE (NEGATIVE) 08/24/19 22:30 Urine Nitrite NEGATIVE (NEGATIVE) 08/24/19 22:30 Urine Bilirubin NEGATIVE (NEGATIVE) 08/24/19:30 Urine Urobilinogen NEGATIVE mg/dL (<2.0) 08/24/19 22:30 Ur Leukocyte Esterase SMALL (NEGATIVE) H 08/24/19 22:30 Urine WBC (Auto) 2 /HPF 08/24/19 22:30 Urine Bacteria (Auto) TRACE /HPF 08/24/19 22:30 Squamous Epi Cells Auto 3 /HPF 08/24/19 22:30 Urine Mucus (Auto) RARE /LPF 08/24/19 22:30 Urine Ascorbic Acid NEGATIVE (NEGATIVE) 08/24/19 22:30 Membranes Rupture POSITIVE (NEGATIVE) H 08/24/19 22:30 Epi Cells (Wet Prep) 3+ EPITHELIALS SEEN 08/24/19 22:30 Bacteria (Wet Prep) 4+ BACTERIA SEEN 08/24/19 22:30 Trichomonas (Wet Prep) NO TRICHOMONAS SEEN 08/24/19 22:30 Vaginal WBC 3+ WBCS SEEN 08/24/19 22:30 Vaginal RBC RARE RBCS SEEN 08/24/19 22:30 Vaginal Yeast NO YEAST SEEN 08/24/19 22:30 Urine Opiates Screen NEGATIVE 08/24/19 22:30 Urine Methadone Screen NEGATIVE 08/24/19 22:30 Ur Barbiturates Screen NEGATIVE 08/24/19 22:30 Ur Phencyclidine Scrn NEGATIVE 08/24/19 22:30 Ur Amphetamines Screen NEGATIVE 08/24/19 22:30 U Benzodiazepines Scrn NEGATIVE 08/24/19 22:30 Urine Cocaine Screen NEGATIVE 08/24/19 22:30 U Marijuana (THC) Screen NEGATIVE 08/24/19 22:30 RPR NONREACTIVE (NONREACTIVE) 08/24/19 23:15 Chlamydia DNA (PCR) NOT DETECTED (NOT DETECT) 08/24/19 22:30 Hep Bs Antigen Negative (Negative) 08/24/19 23:15 Hepatitis C (ROJELIO) <0.1 s/co ratio (0.0-0.9) 08/24/19 23:15 Hep C Verif Com 1 Comment (.) 08/24/19 23:15 HIV 1&2 Antibody NEGATIVE (NEGATIVE) 08/24/19 23:15 N.gonorrhoeae DNA (PCR) NOT DETECTED (NOT DETECT) 08/24/19 22:30 Rubella IgG Antibody 11.20 IU/mL 08/24/19 23:15 Rubella IgG Ab Interp POSITIVE 08/24/19 23:15 Blood Type O POSITIVE 08/24/19 23:15 Antibody Screen NEGATIVE 08/24/19 23:15 Impressions: Obstetrics Ultrasound 08/24/19 00:00 IMPRESSION: Single live intrauterine with estimated gestational age of 39 weeks 3 days. Plan Plan of Treatment: follow up in 4 weeks at [facility] for post check
[2019-08-27] MEDS ORDERED: INFLUENZA QUAD (6MOS+) 2019-20 VAC 0.5 ML SYR IM ONE (12:51)
[2019-08-27] MEDS ORDERED: MEDROXYPROGESTERONE ACET INJ 150 MG/1 ML VIAL IM ONE (13:30)
== END 2019-08-27 16:20 | disposition home or self-care (01) | DRG 807 ==
LOC: LC 22:53 → LR 22:55 → 2S 08-25 02:43
PROVIDERS: ADMIT Student in an Organized Health Care Education/Training Program; ATTEND Student in an Organized Health Care Education/Training Program
PROC: 10E0XZZ Delivery of Products of Conception, External Approach (ICD-10-PCS; principal; 2019-08-25)
DX: O62.3 Precipitate labor (principal); Z37.0 Single live birth; O70.0 First degree perineal laceration during delivery; O69.81X0 Labor and delivery complicated by cord around neck, without compression, not applicable or unspecified; Z3A.39 39 weeks gestation of pregnancy
CPT/HCPCS: 36415; 76815; 80307; 81001; 84112; 85027; 86592; 86701; 86762; 86803; 86804; 86850; 86900; 86901; 87081; 87210; 87340; 87491; 87591; 88307; 90686; 90715; J0702; J1050; J2540; J2590; J3490; J7060

== ENCOUNTER → 2019-08-24 | Emergency (ER) | payer MEDICAID ==
[~2019-08-24] MED LIST: BETAMET ACET/BETAMET NA INJ 6 MG/1 ML ONE; LIDOCAINE 1% INJ-PF (10 MG/ML) 30 ML SDV ONE; MISOPROSTOL 0.2 MG TABLET ONE; OXYTOCIN 10 UNIT/ML VIAL ONE; OXYTOCIN/NORMAL SALINE 20 UNIT/1,000 ML RTUINJ ONE; PENICILLIN G-K 5 MILLION UNIT VIAL ONE
[2019-08-24 21:53] VITALS: BP 137/84
--- NOTE | 2019-08-24 22:15 | ER Document Report ---
ED Medical Screen (RME) - General Chief Complaint: Abdominal Pain Stated Complaint: ABDOMINAL PAIN Time Seen by Provider: 08/24/19 22:03 Mode of Arrival: Wheelchair Information source: Patient Notes: 19-year-old female presented to ED for abdominal pain pelvic pain she is about 7 8 months . She states she does not know exactly how far she is. She states last menstrual period was in September. She is definitely . I have spoken with the PSYCHIATRIC TECH in labor and delivery and they stated that I needed to get a ultrasound blood work and urine. They have she did state that they would send a labor and delivery nurse down to check the cervix to ensure that she is not in active labor with a open cervix. Patient is alert oriented respirations regular nonlabored speaking in full sentences. She states she does have lower abdominal pelvic pain does not have any vaginal pain she has not had any bloody show has not broken her water. Davion may TRAVEL OUTSIDE OF THE [place] IN LAST 30 DAYS: No - Related Data Allergies/Adverse Reactions: No Known Allergies Allergy (Verified 06/02/18 18:43) Past Medical History - Social History Frequency of alcohol use: None Physical Exam - Vital signs Vitals: Temp Pulse Resp BP Pulse Ox 98.7 F 85 20 137/84 H 98 08/24/19 21:52 08/24/19 21:52 08/24/19 21:52 08/24/19 21:52 08/24/19 21:52 Course - Vital Signs Vital signs: Temp Pulse Resp BP Pulse Ox 98.7 F 85 20 137/84 H 98 08/24/19 21:52 08/24/19 21:52 08/24/19 21:52 08/24/19 21:52 08/24/19 21:52
--- NOTE | 2019-08-24 23:13 | ER Document Report ---
ED GI/ - General Chief Complaint: Abdominal Pain Stated Complaint: ABDOMINAL PAIN Time Seen by Provider: 08/24/19 22:03 Mode of Arrival: Wheelchair Information source: Patient Notes: 19-year-old female presented to ED for abdominal pain pelvic pain she is about 7-9 months . she states she does not know exactly how far she is. She states she is in here to find out how far she is she only had a positive test done so far. She states last menstrual period was in September. She is definitely . I have spoken with the CEMENTER HAND in labor and delivery and they stated that I needed to get a ultrasound. RME note I stated [facility] had requested blood and urine she only requested the ultrasound as patient had had no pre- care up to this point. CEMENTER HAND stated she would send a labor and delivery nurse down to check the cervix to ensure that the patient was not in active labor with a open cervix. Patient is alert oriented respirations regular nonlabored speaking in full sentences. She states she does have lower abdominal pelvic pain does not have any vaginal pain she has not had any bloody show has not broken her water. When the labor and delivery nurse came down to examine the patient she was 9 cm dilated and was taken straight to labor and delivery. TRAVEL OUTSIDE OF THE [place] IN LAST 30 DAYS: No - HPI Patient complains to provider of: Abdominal pain Onset: This afternoon Timing/Duration: Gradual Quality of pain: Cramping Severity at maximum: Severe Severity in ED: Severe Pain Level: 5 Location: Pelvis - Lower abdominal and pelvic pain Vaginal bleeding (Compared to normal period): None Menstrual period history: : 2 Para: 1 Exacerbated by: Denies Relieved by: Denies - Related Data Allergies/Adverse Reactions: No Known Allergies Allergy (Verified 06/02/18 18:43) Past Medical History - General Information source: Patient - Social History Smoking Status: Never Smoker Frequency of alcohol use: None Lives with: Family Family History: Reviewed & Not Pertinent Patient has suicidal ideation: No Patient has homicidal ideation: No - Medical History Medical History: Negative Review of Systems - Review of Systems Constitutional: No symptoms reported EENT: No symptoms reported Cardiovascular: No symptoms reported Respiratory: No symptoms reported Gastrointestinal: Abdominal pain Genitourinary: No symptoms reported Female Genitourinary: Musculoskeletal: No symptoms reported Skin: No symptoms reported Hematologic/Lymphatic: No symptoms reported Neurological/Psychological: No symptoms reported Physical Exam - Vital signs Vitals: Temp Pulse Resp BP Pulse Ox 98.7 F 85 20 137/84 H 98 08/24/19 21:52 08/24/19 21:52 08/24/19 21:52 08/24/19 21:52 08/24/19 21:52 - Abdominal Inspection: Gravid female - Very large abdomen patient states somewhere between 7 and 9 months last menstrual. In September, - Babies with palpable on the right side of the abdomen Distension: No distension Bowel sounds: Normal Tenderness: Tender Organomegaly: No organomegaly Course - Vital Signs Vital signs: Temp Pulse Resp BP Pulse Ox 98.7 F 85 20 137/84 H 98 08/24/19 21:52 08/24/19 21:52 08/24/19 21:52 08/24/19 21:52 08/24/19 21:52 - Laboratory Result Diagrams: 08/24/19 23:15 Discharge - Discharge Clinical Impression: Abdominal pain during in third trimester Disposition: ADMITTED INPATIENT Admitting Provider: [facility] Unit Admitted: Labor and Delivery
== END | disposition other institution (70) ==
LOC: ER 21:47 → UNDOADMIN 22:36 → LR 22:36
DX: O26.93 Pregnancy related conditions, unspecified, third trimester (principal); R10.9 Unspecified abdominal pain; Z3A.00 Weeks of gestation of pregnancy not specified
CPT/HCPCS: 99284; J3490; J2590 ×2; J2540; J0702